=== PATIENT | female | born 1985 | race African-American/Black ===

== ENCOUNTER 2018-05-18 06:14 | Emergency (ER) | payer OTHER ==
[2018-05-18 06:21] VITALS: BP 105/71; PULSE 76; TEMP 98; BMI 29.1
--- NOTE | 2018-05-18 06:24 | PDOC ---
History of Present Illness - General Chief Complaint: Eye Problem Stated Complaint: PINK EYE Time Seen by Provider: 05/18/18 06:17 - History of Present Illness Initial Comments: 05/18/18 06:44 This otherwise healthy 32-year-old woman presents with a 2 day history of progressive left eye discomfort and erythematous conjunctiva. No history of trauma to the area. Over the last 12 hours, patient has noted right eye discomfort /erythema. No history of purulent discharge or eye lash crusting. No antecedent febrile illness; denies sore throat/ear discomfort/cough. No change in vision noted. No known contact with anyone with conjunctivitis or other acute eye process. Past History - Past Medical History Allergies/Adverse Reactions: Allergies Allergy/AdvReac Type Severity Reaction Status Date / Time No Known Allergies Allergy Verified 05/18/18 06:15 Home Medications: Ambulatory Orders NK [No Known Home Medication] 05/18/18 COPD: No Other medical history: DENIES - Suicide/Smoking/Psychosocial Hx Smoking History: Never smoked Have you smoked in the past 12 months: No Information on smoking cessation initiated: Yes Hx Alcohol Use: No Drug/Substance Use Hx: No Substance Use Type: None Review of Systems - Review of Systems Able to Perform ROS?: Yes Comments:: 12 point review of systems is negative except for what is noted in the history of present illness *Physical Exam - Vital Signs Last Vital Signs Temp Pulse Resp BP Pulse Ox 98 F 76 18 105/71 99 05/18/18 06:17 05/18/18 06:17 05/18/18 06:17 05/18/18 06:17 05/18/18 06:17 - Physical Exam Comments: GENERAL: Adult female, alert and oriented 3, in no acute distress HEAD: Normal with no signs of trauma. EYES: PERRLA, EOMI, sclera anicteric, bilateral erythematous conjunctiva(left greater than right) no purulent discharge or eyelash crashing noted Pupils/anterior chambers normal bilaterally ENT: Ears normal, nares patent, oropharynx clear without exudates. Dry mucous membranes. NECK: Normal range of motion, supple without lymphadenopathy, JVD, or masses. LUNGS: Breath sounds equal, clear to auscultation bilaterally. No wheezes, and no crackles. EXTREMITIES: Normal range of motion, no edema. No clubbing or cyanosis. No erythema, or tenderness. NEUROLOGICAL: Cranial nerves II through XII grossly intact. Normal speech. No focal neurological deficits. MUSCULOSKELETAL: Back non-tender to palpation, no CVA tenderness SKIN: Warm, Dry, normal turgor, no rashes or lesions noted. Medical Decision Making - Medical Decision Making This 32-year-old woman with a significant past medical history presents with erythema and discomfort of the left eye for 2 days and similar symptoms starting in the right eye over the last several hours. No antecedent febrile illness and no known contacts with other patients with conjunctivitis. 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 *DC/Admit/Observation/Transfer Diagnosis at time of Disposition: Acute conjunctivitis of both eyes Qualifiers: Acute conjunctivitis type: unspecified Qualified Code(s): H10.33 - Unspecified acute conjunctivitis, bilateral - Discharge Dispostion Disposition: HOME Condition at time of disposition: Stable - Referrals Referrals: Elton Hill MD [Staff Physician] - - Patient Instructions Printed Discharge Instructions: Conjunctivitis Additional Instructions: Cipro ophthalmic solution 2 drops in each eye every 4 hours while awake until evaluated by process automation engineer Ibuprofen/naproxen/acetaminophen as needed for pain Careful handwashing; use your own towels/washcloths No work until May 21 Follow-up with process automation engineer (Drs. Hill/Roxana) within the next 48 hours - Post Discharge Activity Forms/Work/School Notes: Back to Work
[2018-05-18] MEDS ORDERED: CIPROFLOXACIN HCL 0.3% OPHTH 2.5ML BOTTLE ONE (06:35)
== END 2018-05-18 07:06 | disposition home or self-care (01) ==
LOC: FER 06:14
DX: H10.33 Unspecified acute conjunctivitis, bilateral (principal)
CPT/HCPCS: 99281-25